=== PATIENT | male | born 1950 | race Caucasian/White ===

== ENCOUNTER 2023-06-08 22:40 | Inpatient (IN) ==
[2023-06-08] MEDS ORDERED: IOPAMIDOL 100 ML BOTTLE IV ONE (22:41)
[2023-06-08] MEDS ORDERED: 0.9 % SODIUM CHLORIDE 1,000 ML IV ONE (23:21)
[2023-06-08] MEDS ORDERED: INSULIN REGULAR, HUMAN 1 UNIT/0.01 ML UNIT IV ONE (23:39)
[2023-06-09 00:25] LABS: Prothrombin Time 23.7 sec (11.9-14.5)
[2023-06-09] MEDS ORDERED: ONDANSETRON 4 MG/2 ML VIAL IV ONE ×2 (00:25→03:16)
[2023-06-09] MEDS ORDERED: 0.9 % SODIUM CHLORIDE 1,000 ML IV ONE (00:26)
[2023-06-09 00:40] LABS: Basophils # (Auto) 0.06 K/mcL (0.00-0.30); Basophils % (Auto) 0.7 % (0.0-2.0); Eosinophils # (Auto) 0.07 K/mcL (0.00-0.70); Eosinophils % (Auto) 0.8 % (0.0-7.0); Hematocrit 44.7 % (40.1-51.0); Hemoglobin 15.3 g/dL (13.7-17.5); Lymphocytes # (Auto) 0.95 K/mcL (1.50-4.80); Lymphocytes % (Auto) 10.4 % (15.5-49.0); Mean Corpuscular HGB Conc 34.2 g/dL (31.0-36.0); Mean Platelet Volume 9.8 fL (8.8-12.5); Monocytes # (Auto) 0.73 K/mcL (0.10-0.90); Neutrophils % (Auto) 79.7 % (38.0-78.0); Platelet Count 166 K/mcL (140-440); RBC 5.08 M/mcL (4.63-6.08); WBC 9.1 K/mcL (4.5-11.0)
[2023-06-09 02:12] LABS: ALT/SGPT 13 U/L (<40); AST/SGOT 13 U/L (<40); Albumin 3.8 gm/dL (3.2-5.2); Alkaline Phosphatase 132 U/L (39-117); Blood Urea Nitrogen 44 mg/dL (8-23); Calcium 9.6 mg/dL (8.6-10.4); Carbon Dioxide 28 mmol/L (22-30); Chloride 85 mmol/L (96-108); Globulin 3.8 gm/dL (2.2-3.7); Glomerular Filtration Rate 42; Glucose 639 mg/dL (70-105)
[2023-06-09] MEDS: LACTATED RINGERS 1,000 ML IV SCH ×2 (04:36→06:14)
[2023-06-09 08:25] LABS: Phosphorous 2.6 mg/dL (2.5-4.5)
[2023-06-09] MEDS ORDERED: MAGNESIUM SULFATE 2 GM/50 ML BAG IV PRN (10:30)
[2023-06-09] MEDS ORDERED: morphine 4 MG/ML VIAL IV PRN (10:30)
[2023-06-09] MEDS ORDERED: DEXTROSE 50% 50 ML VIAL IV PRN (10:30)
[2023-06-09] MEDS ORDERED: POTASSIUM CHLORIDE 20 MEQ TABLET PO PRN ×2 (10:30)
[2023-06-09] MEDS ORDERED: POLYETHYLENE GLYCOL 3350 17 GM PACKET PO PRN (10:30)
[2023-06-09] MEDS ORDERED: ACETAMINOPHEN 325 MG TABLET PO PRN (10:30)
[2023-06-09] MEDS ORDERED: BISMUTH SUBSALICYLATE 15 ML ORAL.SUSP PO ONE (10:30)
[2023-06-09] MEDS ORDERED: POTASSIUM CHLORIDE 40 MEQ in DEXTROSE 5% IN WATER 500 ML IV PRN (10:30)
[2023-06-09] MEDS ORDERED: SENNOSIDES 1 TABLET PO PRN (10:30)
[2023-06-09] MEDS ORDERED: HYDROcodone/APAP 5/325MG TABLET PO PRN (10:30)
[2023-06-09] MEDS ORDERED: DEXTROSE 31 GM ORAL.SUSP PO PRN (10:30)
[2023-06-09] MEDS ORDERED: METOPROLOL TARTRATE 5 MG/5 ML VIAL IV PRN (10:30)
[2023-06-09] MEDS ORDERED: IPRATROPIUM/ALBUTEROL 3 ML AMPUL.NEB NEB PRN (10:30)
[2023-06-09] MEDS ORDERED: MELATONIN 3 MG TABLET PO PRN (10:39)
[2023-06-09 10:43] LABS: Basophils # (Auto) 0.05 K/mcL (0.00-0.30); Basophils % (Auto) 0.7 % (0.0-2.0); Eosinophils # (Auto) 0.09 K/mcL (0.00-0.70); Eosinophils % (Auto) 1.2 % (0.0-7.0); Hematocrit 40.9 % (40.1-51.0); Hemoglobin 13.5 g/dL (13.7-17.5); Lymphocytes # (Auto) 0.86 K/mcL (1.50-4.80); Lymphocytes % (Auto) 11.5 % (15.5-49.0); Mean Cell Volume 90.7 fL (80.0-100.0); Monocytes # (Auto) 0.65 K/mcL (0.10-0.90); Monocytes % (Auto) 8.7 % (1.0-12.0); Neutrophils % (Auto) 77.5 % (38.0-78.0); Platelet Count 110 K/mcL (140-440); RBC 4.51 M/mcL (4.63-6.08); Red Cell Distribution Width 15.3 % (11.5-14.5); WBC 7.5 K/mcL (4.5-11.0)
[2023-06-09] MEDS: PIPERACILLIN SODIUM/TAZOBACTAM 3.375 GM in DEXTROSE 5% IN WATER 50 ML IV SCH ×2 (11:16→18:17)
[2023-06-09] MEDS: HEPARIN 5,000 UNIT/ML VIAL SQ SCH ×2 (11:31→18:18)
[2023-06-09] MEDS: ONDANSETRON 4 MG/2 ML VIAL IV PRN ×3 (11:31→21:41)
[2023-06-09] MEDS: INSULIN GLARGINE, HUMAN 1 UNIT/0.01 ML SQ SCH ×2 (11:49→22:04)
[2023-06-09] MEDS: INSULIN LISPRO 1 UNIT/0.01 ML UNIT SQ SCH ×3 (12:13→20:00)
[2023-06-09 13:47] LABS: Amylase 68 U/L (28-100)
[2023-06-09 13:48] LABS: ALT/SGPT 9 U/L (<40); AST/SGOT 11 U/L (<40); Albumin 3.4 gm/dL (3.2-5.2); Alkaline Phosphatase 90 U/L (39-117); Bilirubin,Total 1.2 mg/dL (0.1-1.0); Blood Urea Nitrogen 28 mg/dL (8-23); Calcium 9.4 mg/dL (8.6-10.4); Carbon Dioxide 26 mmol/L (22-30); Chloride 99 mmol/L (96-108); Globulin 3.3 gm/dL (2.2-3.7); Glomerular Filtration Rate 49; Glucose 224 mg/dL (70-105)
[2023-06-09] MEDS ORDERED: METOPROLOL SUCCINATE 50 MG TAB.XL.24H PO ONE (15:01)
[2023-06-09] MEDS: DOCUSATE SODIUM 100 MG CAPSULE PO SCH (22:04)
[2023-06-09] MEDS: FAMOTIDINE 20 MG TABLET PO SCH (22:05)
[2023-06-09] MEDS: ATORVASTATIN 40 MG TABLET PO SCH (22:09)
[2023-06-09] MEDS: GABAPENTIN 300 MG CAPSULE PO SCH (22:09)
[2023-06-10] MEDS: PIPERACILLIN SODIUM/TAZOBACTAM 3.375 GM in DEXTROSE 5% IN WATER 50 ML IV SCH ×5 (01:02→23:32)
[2023-06-10] MEDS: INSULIN LISPRO 1 UNIT/0.01 ML UNIT SQ SCH ×5 (01:18→21:20)
[2023-06-10] MEDS: HEPARIN 5,000 UNIT/ML VIAL SQ SCH ×3 (02:34→18:47)
[2023-06-10] MEDS: ONDANSETRON 4 MG/2 ML VIAL IV PRN ×2 (04:12→21:06)
[2023-06-10 06:28] LABS: Hematocrit 37.7 % (40.1-51.0); Hemoglobin 12.5 g/dL (13.7-17.5); Mean Cell Volume 89.5 fL (80.0-100.0); Mean Corpuscular HGB Conc 33.2 g/dL (31.0-36.0); Mean Platelet Volume 9.8 fL (8.8-12.5); Platelet Count 131 K/mcL (140-440); RBC 4.21 M/mcL (4.63-6.08); Red Cell Distribution Width 15.1 % (11.5-14.5); WBC 8.3 K/mcL (4.5-11.0)
[2023-06-10 06:47] LABS: ALT/SGPT 7 U/L (<40); AST/SGOT 11 U/L (<40); Albumin 2.8 gm/dL (3.2-5.2); Albumin/Globulin Ratio 0.8 (1.0-2.3); Alkaline Phosphatase 74 U/L (39-117); Bilirubin,Direct 0.3 mg/dL (<0.3); Bilirubin,Total 1.5 mg/dL (0.1-1.0); Blood Urea Nitrogen 20 mg/dL (8-23); Calcium 8.9 mg/dL (8.6-10.4); Carbon Dioxide 25 mmol/L (22-30); Chloride 102 mmol/L (96-108); Globulin 3.3 gm/dL (2.2-3.7); Glomerular Filtration Rate 49; Glucose 119 mg/dL (70-105); Lactate Dehydrogenase 167 U/L (135-225); Phosphorous 2.4 mg/dL (2.5-4.5); Triglycerides 158 mg/dL (<150); Uric Acid 5.8 mg/dL (2.5-8.0)
[2023-06-10] MEDS: DOCUSATE SODIUM 100 MG CAPSULE PO SCH ×2 (08:05→21:07)
[2023-06-10] MEDS: METOPROLOL SUCCINATE 50 MG TAB.XL.24H PO SCH (08:05)
[2023-06-10] MEDS: INSULIN GLARGINE, HUMAN 1 UNIT/0.01 ML SQ SCH ×2 (08:05→21:19)
[2023-06-10 09:35] LABS: Anisocytosis 1+ (None Seen); Band Neutrophils % 4 % (0-10); Basophils % (Manual) 1 % (0-2); Eosinophils % (Manual) 3 % (0-7); Lymphocytes % 21 % (15-49); Monocytes % (Manual) 6 % (1-12); Platelet Estimate NORMAL (Normal); RBC Morphology ABNORMAL (Normal); Segmented Neutrophils % 65 % (38-78)
[2023-06-10] MEDS ORDERED: BISACODYL 10 MG SUPP.RECT PR ONE ×2 (10:55→11:03)
[2023-06-10] MEDS ORDERED: BISACODYL 10 MG SUPP.RECT PR PRN (11:00)
[2023-06-10] MEDS ORDERED: MINERAL OIL 1 DOSE ENEMA PR ONE (11:09)
[2023-06-10] MEDS ORDERED: MINERAL OIL 1 DOSE ENEMA PR PRN (14:09)
[2023-06-10] MEDS: GABAPENTIN 300 MG CAPSULE PO SCH (21:06)
[2023-06-10] MEDS: FAMOTIDINE 20 MG TABLET PO SCH (21:07)
[2023-06-10] MEDS: ATORVASTATIN 40 MG TABLET PO SCH (21:07)
[2023-06-11] MEDS: HEPARIN 5,000 UNIT/ML VIAL SQ SCH ×2 (03:16→10:26)
[2023-06-11] MEDS: PIPERACILLIN SODIUM/TAZOBACTAM 3.375 GM in DEXTROSE 5% IN WATER 50 ML IV SCH (06:07)
[2023-06-11 07:03] LABS: ALT/SGPT 9 U/L (<40); AST/SGOT 13 U/L (<40); Alkaline Phosphatase 71 U/L (39-117); Bilirubin,Direct 0.3 mg/dL (<0.3); Bilirubin,Total 1.3 mg/dL (0.1-1.0); Blood Urea Nitrogen 22 mg/dL (8-23); Calcium 8.6 mg/dL (8.6-10.4); Carbon Dioxide 26 mmol/L (22-30); Chloride 102 mmol/L (96-108); Globulin 3.1 gm/dL (2.2-3.7); Glomerular Filtration Rate 42; Glucose 96 mg/dL (70-105); Lactate Dehydrogenase 170 U/L (135-225); Phosphorous 2.8 mg/dL (2.5-4.5); Triglycerides 167 mg/dL (<150)
[2023-06-11] MEDS: INSULIN LISPRO 1 UNIT/0.01 ML UNIT SQ SCH ×2 (07:24→11:51)
[2023-06-11] MEDS: DOCUSATE SODIUM 100 MG CAPSULE PO SCH (09:45)
[2023-06-11] MEDS: METOPROLOL SUCCINATE 50 MG TAB.XL.24H PO SCH (09:45)
[2023-06-11] MEDS: INSULIN GLARGINE, HUMAN 1 UNIT/0.01 ML SQ SCH (09:45)
== END 2023-06-11 12:15 | disposition home health service (06) | DRG 444 ==
LOC: ED 22:40 → ICU 06-09 08:44 → MEDSUR 06-10 14:56
PROVIDERS: ADMIT Internal Medicine; ATTEND Internal Medicine

== ENCOUNTER 2023-06-30 10:17 | Inpatient (IN) ==
[2023-06-30] MEDS ORDERED: 0.9 % SODIUM CHLORIDE 1,000 ML IV ONE ×2 (10:55→10:57)
[2023-06-30 11:06] LABS: POC Calcium, Ionized 1.21 (1.16-1.32); POC Creatinine 3.3 (0.6-1.2); POC Potassium 4.8 (3.3-5.1)
[2023-06-30] MEDS ORDERED: LACTATED RINGERS 1,000 ML IV ONE (12:00)
[2023-06-30 13:01] LABS: Creatine Kinase 41 U/L (24-195); Creatine Kinase MB 1.8 ng/mL (<6.7); Free T4 (Free Thyroxine) 1.07 ng/dL (0.93-1.70)
[2023-06-30 13:02] LABS: ALT/SGPT 14 U/L (<40); AST/SGOT 16 U/L (<40); Albumin 3.7 gm/dL (3.2-5.2); Alkaline Phosphatase 76 U/L (39-117); Bilirubin,Direct 0.2 mg/dL (<0.3); Bilirubin,Total 1.1 mg/dL (0.1-1.0); Globulin 3.7 gm/dL (2.2-3.7); T4 (Thyroxine) 5.1 ug/dl (5.0-12.0); Thyroid Stimulating Hormone 5.44 uIU/mL (0.27-5.01); proBNP 293.1 pg/mL (<125.0)
[2023-06-30 15:36] LABS: Appearance,Urine CLEAR (Clear); Bilirubin,Urine Negative (Negative); Color,Urine STRAW; Culture Indicated,Urine No; Glucose,Urine (UA) >=500 mg/dL (Negative); Ketones,Urine Negative (Negative); Leukocyte Esterase,Urine Negative /uL (Negative); Mucus,Urine FEW /hpf; Nitrate,Urine Negative (Negative); Protein,Urine Negative (Negative); Specific Gravity,Urine 1.008 (1.000-1.035); Urine Blood Negative (Negative); Urine RBC < 1 /hpf (0-3); Urine Squamous Epithelial Cell 0 /hpf (0-4); Urine WBC 0 /hpf (0-4); Urobilinogen,Urine Negative
[2023-06-30] MEDS ORDERED: ACETAMINOPHEN 325 MG TABLET PO PRN (15:57)
[2023-06-30] MEDS ORDERED: ONDANSETRON 4 MG/2 ML VIAL IV PRN (15:57)
[2023-06-30] MEDS ORDERED: MAGNESIUM HYDROXIDE 30 ML ORAL.SUSP PO PRN (15:57)
[2023-06-30] MEDS ORDERED: HYDROcodone/APAP 5/325MG TABLET PO PRN (15:57)
[2023-06-30] MEDS ORDERED: DEXTROSE 31 GM ORAL.SUSP PO PRN (17:21)
[2023-06-30] MEDS ORDERED: DEXTROSE 50% 50 ML VIAL IV PRN (17:21)
[2023-06-30] MEDS: INSULIN LISPRO 1 UNIT/0.01 ML UNIT SQ SCH ×2 (18:08→21:31)
[2023-06-30] MEDS: LACTATED RINGERS 1,000 ML IV SCH (18:13)
[2023-06-30 18:26] LABS: INR 2.3 (0.9-1.1); Prothrombin Time 25.9 sec (11.9-14.5)
[2023-06-30] MEDS ORDERED: WARFARIN 5 MG TABLET PO SCH (19:00)
[2023-06-30] MEDS ORDERED: ATORVASTATIN 40 MG TABLET PO SCH (21:00)
[2023-06-30] MEDS ORDERED: INSULIN GLARGINE, HUMAN 1 UNIT/0.01 ML SQ SCH (21:00)
[2023-06-30] MEDS: GABAPENTIN 300 MG CAPSULE PO SCH (21:31)
[2023-06-30] MEDS: 0.9 % SODIUM CHLORIDE 10 ML SYRINGE IV SCH (21:33)
[2023-06-30] MEDS: INSULIN GLARGINE, HUMAN 1 UNIT/0.01 ML SQ SCH (21:34)
[2023-07-01] MEDS: LACTATED RINGERS 1,000 ML IV SCH ×2 (04:20→13:02)
[2023-07-01] MEDS ORDERED: METOPROLOL TARTRATE 5 MG/5 ML VIAL IV PRN (04:38)
[2023-07-01] MEDS ORDERED: METOPROLOL SUCCINATE 50 MG TAB.XL.24H PO ONE (04:40)
[2023-07-01] MEDS: METOPROLOL SUCCINATE 50 MG TAB.XL.24H PO SCH ×2 (04:42→07:58)
[2023-07-01] MEDS ORDERED: METOPROLOL TARTRATE 5 MG/5 ML VIAL IV ONE (04:48)
[2023-07-01] MEDS: 0.9 % SODIUM CHLORIDE 10 ML SYRINGE IV SCH ×2 (05:00→14:25)
[2023-07-01 06:56] LABS: Basophils # (Auto) 0.05 K/mcL (0.00-0.30); Basophils % (Auto) 0.5 % (0.0-2.0); Eosinophils # (Auto) 0.13 K/mcL (0.00-0.70); Eosinophils % (Auto) 1.2 % (0.0-7.0); Hematocrit 42.3 % (40.1-51.0); Hemoglobin 13.9 g/dL (13.7-17.5); Lymphocytes # (Auto) 0.63 K/mcL (1.50-4.80); Lymphocytes % (Auto) 5.8 % (15.5-49.0); Mean Cell Volume 90.2 fL (80.0-100.0); Mean Corpuscular HGB Conc 32.9 g/dL (31.0-36.0); Mean Platelet Volume 9.2 fL (8.8-12.5); Monocytes # (Auto) 0.66 K/mcL (0.10-0.90); Monocytes % (Auto) 6.1 % (1.0-12.0); Neutrophils % (Auto) 85.9 % (38.0-78.0); Platelet Count 131 K/mcL (140-440); RBC 4.69 M/mcL (4.63-6.08); Red Cell Distribution Width 14.9 % (11.5-14.5); WBC 10.9 K/mcL (4.5-11.0)
[2023-07-01] MEDS: INSULIN LISPRO 1 UNIT/0.01 ML UNIT SQ SCH ×2 (07:22→12:01)
[2023-07-01 07:23] LABS: INR 2.4 (0.9-1.1); Prothrombin Time 26.8 sec (11.9-14.5)
[2023-07-01 07:28] LABS: ALT/SGPT 14 U/L (<40); AST/SGOT 18 U/L (<40); Albumin 3.9 gm/dL (3.2-5.2); Alkaline Phosphatase 74 U/L (39-117); Bilirubin,Total 1.2 mg/dL (0.1-1.0); Blood Urea Nitrogen 63 mg/dL (8-23); Carbon Dioxide 26 mmol/L (22-30); Chloride 105 mmol/L (96-108); Globulin 3.8 gm/dL (2.2-3.7); Glomerular Filtration Rate 36; Glucose 76 mg/dL (70-105)
[2023-07-01] MEDS: GABAPENTIN 300 MG CAPSULE PO SCH (08:27)
[2023-07-01] MEDS: INSULIN GLARGINE, HUMAN 1 UNIT/0.01 ML SQ SCH (08:33)
[2023-07-01] MEDS ORDERED: WARFARIN 2.5 MG TABLET PO SCH (14:00)
[2023-07-02] MEDS ORDERED: WARFARIN 5 MG TABLET PO SCH (14:00)
== END 2023-07-01 15:25 | disposition home or self-care (01) | DRG 683 ==
LOC: ED 10:17 → ICU 17:07
PROVIDERS: ADMIT Internal Medicine; ATTEND Internal Medicine

== ENCOUNTER 2023-08-07 07:09 | Inpatient (IN) ==
[2023-08-07] MEDS ORDERED: IOPAMIDOL 125 ML BOTTLE IV ONE (07:10)
[2023-08-07] MEDS ORDERED: ONDANSETRON 4 MG/2 ML VIAL IV ONE (07:44)
[2023-08-07 08:43] LABS: Basophils # (Auto) 0.07 K/mcL (0.00-0.30); Basophils % (Auto) 0.7 % (0.0-2.0); Eosinophils # (Auto) 0.15 K/mcL (0.00-0.70); Eosinophils % (Auto) 1.6 % (0.0-7.0); Hematocrit 44.1 % (40.1-51.0); Hemoglobin 14.2 g/dL (13.7-17.5); Lymphocytes # (Auto) 0.67 K/mcL (1.50-4.80); Lymphocytes % (Auto) 7.2 % (15.5-49.0); Mean Cell Volume 92.3 fL (80.0-100.0); Mean Corpuscular HGB Conc 32.2 g/dL (31.0-36.0); Mean Platelet Volume 9.6 fL (8.8-12.5); Monocytes # (Auto) 0.59 K/mcL (0.10-0.90); Monocytes % (Auto) 6.3 % (1.0-12.0); Neutrophils % (Auto) 83.8 % (38.0-78.0); Platelet Count 112 K/mcL (140-440); RBC 4.78 M/mcL (4.63-6.08); Red Cell Distribution Width 14.6 % (11.5-14.5); WBC 9.4 K/mcL (4.5-11.0)
[2023-08-07] MEDS ORDERED: ACETAMINOPHEN 325 MG TABLET PO ONE (08:44)
[2023-08-07] MEDS ORDERED: cefTRIAXone 1 GM VIAL IM ONE (08:46)
[2023-08-07 09:01] LABS: ALT/SGPT 15 U/L (<40); AST/SGOT 18 U/L (<40); Albumin/Globulin Ratio 1.2 (1.0-2.3); Alkaline Phosphatase 95 U/L (39-117); Bilirubin,Total 1.6 mg/dL (0.1-1.0); Blood Urea Nitrogen 23 mg/dL (8-23); Calcium 8.8 mg/dL (8.6-10.4); Carbon Dioxide 26 mmol/L (22-30); Chloride 102 mmol/L (96-108); Globulin 3.4 gm/dL (2.2-3.7); Glomerular Filtration Rate 45; Glucose 155 mg/dL (70-105)
[2023-08-07] MEDS ORDERED: 0.9 % SODIUM CHLORIDE 500 ML IV ONE (10:31)
[2023-08-07] MEDS ORDERED: ALBUTEROL SULFATE 60 PUFF INHALER INH PRN (10:44)
[2023-08-07] MEDS ORDERED: WARFARIN 5 MG TABLET PO SCH (10:45)
[2023-08-07] MEDS ORDERED: WARFARIN 2.5 MG TABLET PO SCH (10:45)
[2023-08-07] MEDS ORDERED: VANCOMYCIN PER PHARMACY IV ONE (10:50)
[2023-08-07] MEDS ORDERED: MELATONIN 3 MG TABLET PO PRN (12:07)
[2023-08-07] MEDS ORDERED: ACETAMINOPHEN 325 MG TABLET PO PRN ×2 (12:09→12:23)
[2023-08-07] MEDS: GABAPENTIN 300 MG CAPSULE PO SCH ×3 (12:22→20:36)
[2023-08-07] MEDS ORDERED: IPRATROPIUM/ALBUTEROL 3 ML AMPUL.NEB NEB PRN (12:23)
[2023-08-07] MEDS ORDERED: DEXTROSE 50% 50 ML VIAL IV PRN (12:23)
[2023-08-07] MEDS ORDERED: DEXTROSE 31 GM ORAL.SUSP PO PRN (12:23)
[2023-08-07] MEDS ORDERED: traZODone HCL 50 MG TABLET PO PRN (12:23)
[2023-08-07 12:35] LABS: Appearance,Urine CLEAR (Clear); Bilirubin,Urine Negative (Negative); Color,Urine YELLOW; Culture Indicated,Urine No; Glucose,Urine (UA) Negative (Negative); Ketones,Urine Negative (Negative); Leukocyte Esterase,Urine Negative /uL (Negative); Mucus,Urine FEW /hpf; Nitrate,Urine Negative (Negative); Protein,Urine 30 mg/dL (Negative); Specific Gravity,Urine 1.017 (1.000-1.035); Urine Blood Negative (Negative); Urine RBC 1 /hpf (0-3); Urine Squamous Epithelial Cell 0 /hpf (0-4); Urine WBC < 1 /hpf (0-4); Urobilinogen,Urine Negative
[2023-08-07 12:39] LABS: INR 1.4 (0.9-1.1); Prothrombin Time 17.5 sec (11.9-14.5)
[2023-08-07] MEDS: INSULIN LISPRO 1 UNIT/0.01 ML UNIT SQ SCH ×4 (12:39→20:35)
[2023-08-07] MEDS ORDERED: VANCOMYCIN PER PHARMACY IV SCH (13:15)
[2023-08-07] MEDS: PIPERACILLIN SODIUM/TAZOBACTAM 3.375 GM in DEXTROSE 5% IN WATER 100 ML IV SCH (13:29)
[2023-08-07] MEDS: 0.9 % SODIUM CHLORIDE 10 ML SYRINGE IV SCH ×2 (13:47→20:36)
[2023-08-07] MEDS ORDERED: WARFARIN 5 MG TABLET PO ONE (14:00)
[2023-08-07] MEDS ORDERED: WARFARIN 5 MG TABLET ONE (16:17)
[2023-08-07] MEDS: ONDANSETRON 4 MG/2 ML VIAL IV PRN (17:05)
[2023-08-07] MEDS: VANCOMYCIN 1,500 MG in 0.9 % SODIUM CHLORIDE 500 ML IV SCH ×2 (17:08→22:34)
[2023-08-07] MEDS: INSULIN GLARGINE, HUMAN 1 UNIT/0.01 ML SQ SCH (20:35)
[2023-08-07] MEDS: ATORVASTATIN 40 MG TABLET PO SCH (20:36)
[2023-08-07] MEDS: SENNOSIDES 1 TABLET PO SCH (20:36)
[2023-08-07] MEDS: TAMSULOSIN 0.4 MG CAPSULE PO SCH (20:36)
[2023-08-07] MEDS: DOCUSATE SODIUM 100 MG CAPSULE PO SCH (20:36)
[2023-08-08] MEDS: PIPERACILLIN SODIUM/TAZOBACTAM 3.375 GM in DEXTROSE 5% IN WATER 100 ML IV SCH ×4 (00:18→21:32)
[2023-08-08 06:22] LABS: Basophils # (Auto) 0.04 K/mcL (0.00-0.30); Basophils % (Auto) 0.5 % (0.0-2.0); Eosinophils # (Auto) 0.12 K/mcL (0.00-0.70); Eosinophils % (Auto) 1.5 % (0.0-7.0); Hemoglobin 11.7 g/dL (13.7-17.5); Lymphocytes % (Auto) 12.1 % (15.5-49.0); Mean Cell Volume 94.9 fL (80.0-100.0); Mean Corpuscular HGB Conc 31.6 g/dL (31.0-36.0); Mean Platelet Volume 9.9 fL (8.8-12.5); Monocytes % (Auto) 8.5 % (1.0-12.0); Neutrophils % (Auto) 76.9 % (38.0-78.0); Platelet Count 94 K/mcL (140-440); Red Cell Distribution Width 14.8 % (11.5-14.5); WBC 8.2 K/mcL (4.5-11.0)
[2023-08-08 06:28] LABS: INR 1.4 (0.9-1.1); Prothrombin Time 17.5 sec (11.9-14.5)
[2023-08-08 06:50] LABS: Estimated Average Glucose(eAG) 183 mg/dL
[2023-08-08 06:53] LABS: ALT/SGPT 11 U/L (<40); AST/SGOT 15 U/L (<40); Albumin 3.3 gm/dL (3.2-5.2); Albumin/Globulin Ratio 1.1 (1.0-2.3); Alkaline Phosphatase 66 U/L (39-117); Bilirubin,Total 2.1 mg/dL (0.1-1.0); Blood Urea Nitrogen 20 mg/dL (8-23); Calcium 8.5 mg/dL (8.6-10.4); Carbon Dioxide 22 mmol/L (22-30); Chloride 106 mmol/L (96-108); Globulin 2.9 gm/dL (2.2-3.7); Glomerular Filtration Rate 42; Glucose 80 mg/dL (70-105)
[2023-08-08 06:57] LABS: Thyroid Stimulating Hormone 1.73 uIU/mL (0.27-5.01)
[2023-08-08] MEDS: INSULIN LISPRO 1 UNIT/0.01 ML UNIT SQ SCH ×7 (08:09→20:52)
[2023-08-08] MEDS: INSULIN GLARGINE, HUMAN 1 UNIT/0.01 ML SQ SCH ×2 (08:44→20:52)
[2023-08-08] MEDS: DOCUSATE SODIUM 100 MG CAPSULE PO SCH ×2 (08:45→20:53)
[2023-08-08] MEDS: GABAPENTIN 300 MG CAPSULE PO SCH ×4 (08:45→20:53)
[2023-08-08] MEDS: METOPROLOL SUCCINATE 50 MG TAB.XL.24H PO SCH (08:45)
[2023-08-08] MEDS: 0.9 % SODIUM CHLORIDE 10 ML SYRINGE IV SCH ×3 (08:50→21:33)
[2023-08-08] MEDS ORDERED: POTASSIUM CHLORIDE 10 MEQ TABLET PO SCH (09:00)
[2023-08-08] MEDS: ONDANSETRON 4 MG/2 ML VIAL IV PRN (12:21)
[2023-08-08] MEDS ORDERED: WARFARIN 5 MG TABLET PO ONE (14:00)
[2023-08-08] MEDS: ATORVASTATIN 40 MG TABLET PO SCH (20:53)
[2023-08-08] MEDS: TAMSULOSIN 0.4 MG CAPSULE PO SCH (20:53)
[2023-08-08] MEDS: SENNOSIDES 1 TABLET PO SCH (20:53)
[2023-08-09] MEDS: PIPERACILLIN SODIUM/TAZOBACTAM 3.375 GM in DEXTROSE 5% IN WATER 100 ML IV SCH ×3 (05:08→23:07)
[2023-08-09] MEDS: 0.9 % SODIUM CHLORIDE 10 ML SYRINGE IV SCH ×3 (05:09→20:20)
[2023-08-09 06:30] LABS: INR 1.4 (0.9-1.1); Prothrombin Time 17.8 sec (11.9-14.5)
[2023-08-09 06:31] LABS: Basophils # (Auto) 0.03 K/mcL (0.00-0.30); Basophils % (Auto) 0.4 % (0.0-2.0); Eosinophils % (Auto) 1.5 % (0.0-7.0); Hematocrit 34.7 % (40.1-51.0); Hemoglobin 10.9 g/dL (13.7-17.5); Lymphocytes # (Auto) 1.03 K/mcL (1.50-4.80); Lymphocytes % (Auto) 15.1 % (15.5-49.0); Mean Corpuscular HGB Conc 31.4 g/dL (31.0-36.0); Mean Platelet Volume 9.6 fL (8.8-12.5); Monocytes # (Auto) 0.66 K/mcL (0.10-0.90); Monocytes % (Auto) 9.7 % (1.0-12.0); Platelet Count 97 K/mcL (140-440); RBC 3.73 M/mcL (4.63-6.08); Red Cell Distribution Width 14.6 % (11.5-14.5); WBC 6.8 K/mcL (4.5-11.0)
[2023-08-09 06:52] LABS: ALT/SGPT 9 U/L (<40); AST/SGOT 13 U/L (<40); Albumin 2.9 gm/dL (3.2-5.2); Albumin/Globulin Ratio 0.9 (1.0-2.3); Alkaline Phosphatase 63 U/L (39-117); Bilirubin,Total 2.1 mg/dL (0.1-1.0); Blood Urea Nitrogen 19 mg/dL (8-23); Calcium 8.3 mg/dL (8.6-10.4); Carbon Dioxide 23 mmol/L (22-30); Chloride 105 mmol/L (96-108); Globulin 3.2 gm/dL (2.2-3.7); Glomerular Filtration Rate 42; Glucose 52 mg/dL (70-105)
[2023-08-09] MEDS: INSULIN LISPRO 1 UNIT/0.01 ML UNIT SQ SCH ×7 (07:54→20:19)
[2023-08-09] MEDS: GABAPENTIN 300 MG CAPSULE PO SCH ×4 (08:11→20:19)
[2023-08-09] MEDS: DOCUSATE SODIUM 100 MG CAPSULE PO SCH ×2 (08:12→20:19)
[2023-08-09] MEDS: INSULIN GLARGINE, HUMAN 1 UNIT/0.01 ML SQ SCH ×2 (08:12→20:19)
[2023-08-09] MEDS: METOPROLOL SUCCINATE 50 MG TAB.XL.24H PO SCH (08:12)
[2023-08-09] MEDS ORDERED: WARFARIN 5 MG TABLET PO ONE (14:00)
[2023-08-09] MEDS: SENNOSIDES 1 TABLET PO SCH (20:19)
[2023-08-09] MEDS: ATORVASTATIN 40 MG TABLET PO SCH (20:19)
[2023-08-09] MEDS: TAMSULOSIN 0.4 MG CAPSULE PO SCH (20:19)
[2023-08-10] MEDS: 0.9 % SODIUM CHLORIDE 10 ML SYRINGE IV SCH ×3 (05:21→22:00)
[2023-08-10] MEDS: PIPERACILLIN SODIUM/TAZOBACTAM 3.375 GM in DEXTROSE 5% IN WATER 100 ML IV SCH (05:21)
[2023-08-10 06:21] LABS: Basophils # (Auto) 0.04 K/mcL (0.00-0.30); Basophils % (Auto) 0.8 % (0.0-2.0); Eosinophils # (Auto) 0.19 K/mcL (0.00-0.70); Eosinophils % (Auto) 3.6 % (0.0-7.0); Hematocrit 33.5 % (40.1-51.0); Hemoglobin 10.8 g/dL (13.7-17.5); Lymphocytes # (Auto) 0.66 K/mcL (1.50-4.80); Lymphocytes % (Auto) 12.5 % (15.5-49.0); Mean Cell Volume 92.8 fL (80.0-100.0); Mean Corpuscular HGB Conc 32.2 g/dL (31.0-36.0); Mean Platelet Volume 9.7 fL (8.8-12.5); Monocytes # (Auto) 0.57 K/mcL (0.10-0.90); Monocytes % (Auto) 10.8 % (1.0-12.0); Neutrophils % (Auto) 71.7 % (38.0-78.0); Platelet Count 94 K/mcL (140-440); RBC 3.61 M/mcL (4.63-6.08); Red Cell Distribution Width 14.4 % (11.5-14.5); WBC 5.3 K/mcL (4.5-11.0)
[2023-08-10 06:30] LABS: INR 1.5 (0.9-1.1); Prothrombin Time 19.1 sec (11.9-14.5)
[2023-08-10 06:48] LABS: ALT/SGPT 8 U/L (<40); AST/SGOT 12 U/L (<40); Albumin 2.9 gm/dL (3.2-5.2); Albumin/Globulin Ratio 0.9 (1.0-2.3); Alkaline Phosphatase 71 U/L (39-117); Bilirubin,Direct 0.3 mg/dL (<0.3); Bilirubin,Total 1.3 mg/dL (0.1-1.0); Blood Urea Nitrogen 21 mg/dL (8-23); Calcium 8.6 mg/dL (8.6-10.4); Carbon Dioxide 22 mmol/L (22-30); Chloride 105 mmol/L (96-108); Globulin 3.3 gm/dL (2.2-3.7); Glomerular Filtration Rate 42; Glucose 160 mg/dL (70-105); Lactate Dehydrogenase 193 U/L (135-225); Phosphorous 2.6 mg/dL (2.5-4.5); Triglycerides 83 mg/dL (<150); Uric Acid 4.5 mg/dL (2.5-8.0)
[2023-08-10] MEDS: INSULIN LISPRO 1 UNIT/0.01 ML UNIT SQ SCH ×9 (07:53→21:53)
[2023-08-10] MEDS: INSULIN GLARGINE, HUMAN 1 UNIT/0.01 ML SQ SCH ×2 (07:54→22:00)
[2023-08-10] MEDS: METOPROLOL SUCCINATE 50 MG TAB.XL.24H PO SCH (07:54)
[2023-08-10] MEDS: GABAPENTIN 300 MG CAPSULE PO SCH ×4 (07:54→21:59)
[2023-08-10] MEDS: DOCUSATE SODIUM 100 MG CAPSULE PO SCH ×2 (07:55→21:59)
[2023-08-10] MEDS ORDERED: ALBUMIN HUMAN 12.5 GM/50 ML VIAL IV ONE (09:23)
[2023-08-10] MEDS ORDERED: FUROSEMIDE 40 MG/4 ML VIAL IV ONE (09:23)
[2023-08-10] MEDS: cefTRIAXone 2 GM in DEXTROSE 5% IN WATER 50 ML IV SCH (12:53)
[2023-08-10] MEDS ORDERED: WARFARIN 5 MG TABLET PO ONE (14:00)
[2023-08-10] MEDS: TAMSULOSIN 0.4 MG CAPSULE PO SCH (21:59)
[2023-08-10] MEDS: SENNOSIDES 1 TABLET PO SCH (21:59)
[2023-08-10] MEDS: ATORVASTATIN 40 MG TABLET PO SCH (21:59)
[2023-08-11] MEDS: 0.9 % SODIUM CHLORIDE 10 ML SYRINGE IV SCH ×2 (05:51→13:37)
[2023-08-11 06:42] LABS: INR 1.6 (0.9-1.1); Prothrombin Time 19.3 sec (11.9-14.5)
[2023-08-11] MEDS: INSULIN LISPRO 1 UNIT/0.01 ML UNIT SQ SCH ×4 (07:02→12:08)
[2023-08-11] MEDS: GABAPENTIN 300 MG CAPSULE PO SCH ×2 (08:10→12:40)
[2023-08-11] MEDS: INSULIN GLARGINE, HUMAN 1 UNIT/0.01 ML SQ SCH (08:10)
[2023-08-11] MEDS: DOCUSATE SODIUM 100 MG CAPSULE PO SCH (08:10)
[2023-08-11] MEDS: METOPROLOL SUCCINATE 50 MG TAB.XL.24H PO SCH (08:10)
[2023-08-11] MEDS ORDERED: INSULIN GLARGINE, HUMAN 1 UNIT/0.01 ML SQ SCH (08:18)
[2023-08-11] MEDS: cefTRIAXone 2 GM in DEXTROSE 5% IN WATER 50 ML IV SCH (09:37)
[2023-08-11] MEDS ORDERED: WARFARIN 7.5 MG TABLET PO ONE (10:00)
[2023-08-14] MEDS ORDERED: ERGOCALCIFEROL (VITAMIN D2) 50,000 UNIT CAPSULE PO SCH (09:00)
== END 2023-08-11 15:14 | disposition home or self-care (01) | DRG 638 ==
LOC: ED 07:09 → MEDSUR 11:55
PROVIDERS: ADMIT Internal Medicine; ATTEND Internal Medicine